=== PATIENT | female | born 1960 | race Caucasian/White ===

== ENCOUNTER 2021-07-24 14:05 | Observation (INO) | payer BC ==
[2021-07-24] MEDS ORDERED: Ondansetron PF 4 MG/2 ML Vial ONE (15:06)
[2021-07-24 15:17] LABS: #Neutrophils 9.1 10x3/uL (1.5-8.4); %Basophils 0.3 % (0.0-2.0); %Eosinophils 0.1 % (0.0-6.0); %Lymphocytes 11.1 % (18.0-47.0); %Neutrophils 79.2 % (40.0-75.0); Hemoglobin 15.2 g/dL (12.0-15.5); Mean Corpuscular HGB CONC 34.4 g/dL (32.0-36.0); Mean Corpuscular Hemoglobin 30.6 pg (27.0-33.0); Mean Corpuscular Volume 89.1 fl (81.6-98.3); Mean Platelet Volume 9.1 fl (7.4-10.4); Platelet Count 354 10x3/uL (150-450); RBC Distribution Width 12.4 % (11.5-14.5); Red Blood Cell (RBC) Count 4.96 10x6/uL (3.90-5.03); White Blood Cell (WBC) Count 11.5 10x3/uL (3.5-10.5)
[2021-07-24 15:20] LABS: ALT (SGPT) 77 U/L (8-55); AST (SGOT) 47 U/L (5-34); Albumin 4.6 g/dL (3.4-4.8); Alkaline Phosphatase 82 U/L (40-110); Anion Gap 23 mmol/L (10-20); BUN (Urea Nitrogen) 20 mg/dL (9.8-20.1); Bilirubin, Total 1.1 mg/dL (0.2-1.2); Calc. Creatinine Clearance 0 mL/min (70-130); Carbon Dioxide 22 mmol/L (23-31); Chloride 90 mmol/L (98-107); Globulin 3.4 g/dL (2.4-3.5); Glucose 79 mg/dL (80-115); Lipase 12 U/L (8-78); Potassium 3.5 mmol/L (3.5-5.1); Sodium 131 mmol/L (136-145)
[2021-07-24 16:11] LABS: Bilirubin Neg (Negative); Blood, Urine 50 (Negative); Clarity Clear (Clear); Glucose, Urine (Dipstick) Normal (Negative); Ketone, Urine 150 mg/dL (Negative); Leukocyte 25 (Negative); Nitrite Negative (Negative); Protein, Urine (Dipstick) 30 mg/dl (Neg-Trace); Specific Gravity, Urine 1.025 (1.002-1.036)
[2021-07-24] MEDS ORDERED: Promethazine HCl 25 MG/ML VIAL ONE (16:14)
[2021-07-24 16:18] LABS: RBC/HPF 0-3 HPF (0-3); Squamous Epithelial 0-3 HPF (0-3)
[2021-07-24 16:19] LABS: Bacteria/HPF Rare-Few HPF (None Seen)
[2021-07-24] MEDS ORDERED: Ondansetron PF 4 MG/2 ML Vial IVP PRN (17:06)
[2021-07-24] MEDS ORDERED: Acetaminophen 325 MG TAB PO PRN (17:08)
[2021-07-24] MEDS ORDERED: Pantoprazole 40 MG VIAL ONE ×2 (18:32)
[2021-07-24 19:12] VITALS: BMI 20.2
[2021-07-24 19:49] LABS: Lactic Acid 1.4 mmol/L (0.5-2.2)
[2021-07-24] MEDS ORDERED: Pantoprazole 40 MG VIAL IVP SCH (20:00)
[2021-07-24] MEDS ORDERED: Potassium Chloride 10 MEQ, Admixture Fee 1 EACH in Dextrose 5 % And 0.9 % NaCl 1,000 ML IV SCH (20:00)
[2021-07-24] MEDS ORDERED: cefTRIAXone\\ROCEPHIN 1 GM in Sodium Chloride 0.9% 100 ML IVPB SCH (21:00)
[2021-07-25] MEDS ORDERED: Morphine 4 MG/ML VIAL SLOW IVP PRN (00:08)
[2021-07-25 05:28] LABS: Mean Corpuscular HGB CONC 33.5 g/dL (32.0-36.0); Mean Corpuscular Hemoglobin 30.4 pg (27.0-33.0); Mean Corpuscular Volume 90.6 fl (81.6-98.3); Mean Platelet Volume 9.1 fl (7.4-10.4); Platelet Count 280 10x3/uL (150-450); RBC Distribution Width 12.4 % (11.5-14.5); Red Blood Cell (RBC) Count 3.95 10x6/uL (3.90-5.03); White Blood Cell (WBC) Count 9.8 10x3/uL (3.5-10.5)
[2021-07-25 05:36] LABS: ALT (SGPT) 44 U/L (8-55); AST (SGOT) 27 U/L (5-34); Albumin 3.4 g/dL (3.4-4.8); Alkaline Phosphatase 54 U/L (40-110); Anion Gap 13 mmol/L (10-20); BUN (Urea Nitrogen) 16 mg/dL (9.8-20.1); Bilirubin, Total 0.8 mg/dL (0.2-1.2); Calc. Creatinine Clearance 87 mL/min (70-130); Calcium 8.3 mg/dL (7.8-10.44); Carbon Dioxide 20 mmol/L (23-31); Chloride 103 mmol/L (98-107); Globulin 2.3 g/dL (2.4-3.5); Glucose 103 mg/dL (80-115); Magnesium 1.9 mg/dL (1.6-2.6); Potassium 3.4 mmol/L (3.5-5.1); Protein, Total 5.7 g/dL (5.8-8.1); Sodium 133 mmol/L (136-145)
[2021-07-25 06:04] LABS: Band 2 % (5-11); Monocytes 16 % (0-10); Reactive Lymphocytes 4 % (0-10)
[2021-07-25 06:05] LABS: Eosinophils 1 % (0-10); Lymphocytes 16 % (21-51)
[2021-07-25 06:06] LABS: Platelet Morphology Comment Appears Adequate
[2021-07-25 06:08] LABS: MDiff Complete? YES; Neutrophil 60 % (42-75); RBC Morphology Normal
[2021-07-25] MEDS ORDERED: FLU VACC QS2021-22(6MOS UP)/PF 60 MCG/0.5 ML SYRINGE IM ONE (06:15)
[2021-07-25] MEDS ORDERED: Prevnar 13-Val Conj/PF 0.5 ML SYRINGE IM ONE (06:15)
[2021-07-25] MEDS ORDERED: Enoxaparin Sodium 40 MG/0.4 ML SYRINGE SC SCH (09:00)
[2021-07-25] MEDS ORDERED: Pantoprazole 40 MG VIAL IVP SCH (09:00)
[2021-07-25 12:22] VITALS: BP 130/74; TEMP 99
== END 2021-07-25 15:32 | disposition home or self-care (01) ==
LOC: CSHERS 14:05 → INTOOBSV 18:03 → CSHTELE 18:03
PROVIDERS: ADMIT Family Medicine; ATTEND Family Medicine
DX: K56.600 Partial intestinal obstruction, unspecified as to cause (principal); N39.0 Urinary tract infection, site not specified; E87.2 Acidosis; E87.1 Hypo-osmolality and hyponatremia; E86.0 Dehydration; R74.01 Elevation of levels of liver transaminase levels; I10 Essential (primary) hypertension; G35 Multiple sclerosis; F31.9 Bipolar disorder, unspecified; K21.9 Gastro-esophageal reflux disease without esophagitis; Z79.899 Other long term (current) drug therapy; Z88.0 Allergy status to penicillin; Z88.5 Allergy status to narcotic agent
CPT/HCPCS: 74176; 80053; 81003; 81015; 82010; 83605; 83690; 83735; 84443; 85025; 93005; 94760; 96365; 96372; 96374; 96375; 96376; C9113; G0378; J0696; J1650; J2270; J2405; J2550; J3480; J3490; J7042

== ENCOUNTER 2021-07-27 11:45 | Inpatient (IN) | payer BC ==
[2021-07-27 12:41] LABS: #Neutrophils 5.7 10x3/uL (1.5-8.4); %Basophils 0.4 % (0.0-2.0); %Eosinophils 0.4 % (0.0-6.0); %Lymphocytes 24.1 % (18.0-47.0); %Monocytes 11.1 % (0.0-10.0); %Neutrophils 63.8 % (40.0-75.0); Mean Corpuscular HGB CONC 33.5 g/dL (32.0-36.0); Mean Corpuscular Hemoglobin 30.4 pg (27.0-33.0); Mean Corpuscular Volume 90.7 fl (81.6-98.3); Mean Platelet Volume 8.9 fl (7.4-10.4); Platelet Count 315 10x3/uL (150-450); RBC Distribution Width 12.4 % (11.5-14.5); Red Blood Cell (RBC) Count 4.28 10x6/uL (3.90-5.03)
[2021-07-27 12:56] LABS: ALT (SGPT) 31 U/L (8-55); AST (SGOT) 24 U/L (5-34); Albumin 4.1 g/dL (3.4-4.8); Alkaline Phosphatase 63 U/L (40-110); Anion Gap 18 mmol/L (10-20); BUN (Urea Nitrogen) 10 mg/dL (9.8-20.1); Bilirubin, Total 0.8 mg/dL (0.2-1.2); Calc. Creatinine Clearance 0 mL/min (70-130); Calcium 9.3 mg/dL (7.8-10.44); Carbon Dioxide 23 mmol/L (23-31); Chloride 100 mmol/L (98-107); Globulin 2.7 g/dL (2.4-3.5); Glucose 73 mg/dL (80-115); Lipase 45 U/L (8-78); Potassium 3.3 mmol/L (3.5-5.1); Protein, Total 6.8 g/dL (5.8-8.1); Sodium 138 mmol/L (136-145)
[2021-07-27] MEDS ORDERED: Acetaminophen 325 MG TAB PO PRN (14:14)
[2021-07-27] MEDS ORDERED: Ondansetron PF 4 MG/2 ML Vial IVP PRN (14:14)
[2021-07-27] MEDS ORDERED: Bisacodyl 10 MG SUPP PR PRN (14:14)
[2021-07-27] MEDS ORDERED: Senokot S 8.6-50 MG TAB PO PRN (14:14)
[2021-07-27] MEDS ORDERED: hydrALAZINE 20 MG/ML VIAL SLOW IVP PRN (14:17)
[2021-07-27] MEDS ORDERED: Bisacodyl 10 MG SUPP PR SCH (17:30)
[2021-07-27 17:53] VITALS: BMI 19.7
[2021-07-27] MEDS: Potassium Chloride 20 MEQ in Lactated Ringer's 1,000 ML IV SCH (19:31)
[2021-07-27] MEDS: Famotidine/PF 20 mg/2ml Vial SLOW IVP SCH (19:42)
[2021-07-28 01:01] LABS: SARS-CoV-2 NAA Rapid Test Not Detected (NotDetected)
[2021-07-28 04:58] LABS: #Basophils 0.1 10x3/uL (0.0-0.2); #Monocytes 1.1 10x3/uL (0.0-1.1); #Neutrophils 8.6 10x3/uL (1.5-8.4); %Basophils 0.5 % (0.0-2.0); %Eosinophils 0.2 % (0.0-6.0); %Lymphocytes 18.2 % (18.0-47.0); %Monocytes 9.2 % (0.0-10.0); %Neutrophils 71.6 % (40.0-75.0); Hemoglobin 13.3 g/dL (12.0-15.5); Mean Corpuscular HGB CONC 33.3 g/dL (32.0-36.0); Mean Corpuscular Hemoglobin 30.4 pg (27.0-33.0); Mean Corpuscular Volume 91.5 fl (81.6-98.3); Mean Platelet Volume 8.8 fl (7.4-10.4); Platelet Count 369 10x3/uL (150-450); RBC Distribution Width 12.5 % (11.5-14.5); Red Blood Cell (RBC) Count 4.37 10x6/uL (3.90-5.03)
[2021-07-28 05:13] LABS: Anion Gap 19 mmol/L (10-20); BUN (Urea Nitrogen) 11 mg/dL (9.8-20.1); Calc. Creatinine Clearance 74 mL/min (70-130); Calcium 9.1 mg/dL (7.8-10.44); Carbon Dioxide 22 mmol/L (23-31); Chloride 106 mmol/L (98-107); Glucose 71 mg/dL (80-115); Potassium 3.2 mmol/L (3.5-5.1); Sodium 144 mmol/L (136-145)
[2021-07-28] MEDS: Famotidine/PF 20 mg/2ml Vial SLOW IVP SCH (08:52)
[2021-07-28] MEDS ORDERED: Potassium Chloride 20 MEQ in Premix Bag 1 BAG IVPB SCH (09:00)
[2021-07-28] MEDS: Potassium Chloride 20 MEQ in Lactated Ringer's 1,000 ML IV SCH (09:41)
[2021-07-28 12:47] VITALS: BP 140/76; TEMP 98.3
== END 2021-07-28 17:00 | disposition home or self-care (01) | DRG 389 ==
LOC: CSHERS 11:45 → CSHTELE 16:55
PROVIDERS: ADMIT Family Medicine; ATTEND Family Medicine
DX: K56.600 Partial intestinal obstruction, unspecified as to cause (principal); N39.0 Urinary tract infection, site not specified; E87.2 Acidosis; E87.1 Hypo-osmolality and hyponatremia; E87.6 Hypokalemia; I10 Essential (primary) hypertension; M06.9 Rheumatoid arthritis, unspecified; Z20.822 Contact with and (suspected) exposure to COVID-19; F31.9 Bipolar disorder, unspecified; Z88.2 Allergy status to sulfonamides; Z88.5 Allergy status to narcotic agent; Z79.899 Other long term (current) drug therapy; Z90.49 Acquired absence of other specified parts of digestive tract; Z90.710 Acquired absence of both cervix and uterus; Z98.890 Other specified postprocedural states; E86.0 Dehydration; R74.01 Elevation of levels of liver transaminase levels; G35 Multiple sclerosis; K21.9 Gastro-esophageal reflux disease without esophagitis
CPT/HCPCS: 36415; 74018; 74176; 74177; 74250; 80048; 80053; 81003; 81015; 82010; 83605; 83690; 83735; 84443; 85025; 93005; 94760; 96372; 96374; 96375; 96376; C9113; G0378; J0696; J1650; J2270; J2405; J2550; J3480; J3490; J7042; J7120; S0028; U0002

== ENCOUNTER 2021-08-07 07:29 | Inpatient (IN) | payer BC ==
[2021-08-07 08:45] LABS: ALT (SGPT) 590 U/L (8-55); AST (SGOT) 66 U/L (5-34); Albumin 4.2 g/dL (3.4-4.8); Alkaline Phosphatase 79 U/L (40-110); Anion Gap 24 mmol/L (10-20); BUN (Urea Nitrogen) 14 mg/dL (9.8-20.1); Bilirubin, Total 1.1 mg/dL (0.2-1.2); Calc. Creatinine Clearance 0 mL/min (70-130); Calcium 9.3 mg/dL (7.8-10.44); Carbon Dioxide 23 mmol/L (23-31); Chloride 89 mmol/L (98-107); Globulin 3.1 g/dL (2.4-3.5); Glucose 76 mg/dL (80-115); Lipase 11 U/L (8-78); Potassium 3.5 mmol/L (3.5-5.1); Protein, Total 7.3 g/dL (5.8-8.1); Sodium 132 mmol/L (136-145)
[2021-08-07 08:48] LABS: %Basophils 0.4 % (0.0-2.0); %Eosinophils 0.1 % (0.0-6.0); %Lymphocytes 14.8 % (18.0-47.0); %Monocytes 10.4 % (0.0-10.0); Mean Corpuscular HGB CONC 33.6 g/dL (32.0-36.0); Mean Corpuscular Hemoglobin 30.6 pg (27.0-33.0); Mean Platelet Volume 8.9 fl (7.4-10.4); Platelet Count 424 10x3/uL (150-450); RBC Distribution Width 13.1 % (11.5-14.5); White Blood Cell (WBC) Count 9.4 10x3/uL (3.5-10.5)
[2021-08-07 10:15] LABS: Bilirubin Neg (Negative); Blood, Urine 25 (Negative); Clarity Clear (Clear); Glucose, Urine (Dipstick) Normal (Negative); Ketone, Urine 150 mg/dL (Negative); Leukocyte Negative (Negative); Nitrite Negative (Negative); Protein, Urine (Dipstick) 30 mg/dl (Neg-Trace); Specific Gravity, Urine 1.015 (1.002-1.036); Urobilinogen Normal mg/dL (Less than 2)
[2021-08-07 10:41] LABS: Bacteria/HPF Rare-Few HPF (None Seen); RBC/HPF 0-3 HPF (0-3); Squamous Epithelial 0-3 HPF (0-3); WBC/HPF 0-3 HPF (0-3)
[2021-08-07 10:53] LABS: SARS-CoV-2 NAA Rapid Test Not Detected (NotDetected)
[2021-08-07] MEDS ORDERED: Ondansetron PF 4 MG/2 ML Vial ONE (11:22)
[2021-08-07] MEDS ORDERED: Ondansetron ODT 4 MG TAB PO PRN (11:47)
[2021-08-07] MEDS ORDERED: Metoclopramide HCl 10 MG/2 ML VIAL IVP PRN (11:49)
[2021-08-07] MEDS ORDERED: Thiamine 100 MG TAB PO SCH (13:30)
[2021-08-07] MEDS: D5 1/2 NS w/20 mEq KCL 1,000 ML IV SCH (16:43)
[2021-08-07 17:53] VITALS: BMI 19.2
[2021-08-07] MEDS: Ondansetron PF 4 MG/2 ML Vial IVP PRN (21:30)
[2021-08-07] MEDS ORDERED: Acetaminophen 650 MG/20.3 ML UDCUP PO SCH (23:45)
[2021-08-08] MEDS: D5 1/2 NS w/20 mEq KCL 1,000 ML IV SCH ×3 (02:45→21:00)
[2021-08-08 04:26] LABS: #Basophils 0.1 10x3/uL (0.0-0.2); #Eosinphils 0.1 10x3/uL (0.0-0.5); %Basophils 0.7 % (0.0-2.0); %Lymphocytes 24.1 % (18.0-47.0); %Monocytes 14.9 % (0.0-10.0); Hemoglobin 12.5 g/dL (12.0-15.5); Mean Corpuscular HGB CONC 33.2 g/dL (32.0-36.0); Mean Corpuscular Hemoglobin 30.3 pg (27.0-33.0); Mean Corpuscular Volume 91.3 fl (81.6-98.3); Mean Platelet Volume 8.7 fl (7.4-10.4); Platelet Count 312 10x3/uL (150-450); RBC Distribution Width 13.1 % (11.5-14.5); Red Blood Cell (RBC) Count 4.12 10x6/uL (3.90-5.03); White Blood Cell (WBC) Count 6.9 10x3/uL (3.5-10.5)
[2021-08-08 05:04] LABS: ALT (SGPT) 336 U/L (8-55); AST (SGOT) 35 U/L (5-34); Albumin 3.2 g/dL (3.4-4.8); Alkaline Phosphatase 60 U/L (40-110); Anion Gap 9 mmol/L (10-20); BUN (Urea Nitrogen) 7 mg/dL (9.8-20.1); Bilirubin, Total 0.9 mg/dL (0.2-1.2); Calc. Creatinine Clearance 70 mL/min (70-130); Calcium 8.3 mg/dL (7.8-10.44); Carbon Dioxide 28 mmol/L (23-31); Chloride 100 mmol/L (98-107); Globulin 2.1 g/dL (2.4-3.5); Glucose 107 mg/dL (80-115); Potassium 3.4 mmol/L (3.5-5.1); Protein, Total 5.3 g/dL (5.8-8.1); Sodium 134 mmol/L (136-145)
[2021-08-08] MEDS: Ondansetron PF 4 MG/2 ML Vial IVP PRN ×2 (09:01→17:21)
[2021-08-08] MEDS: Pantoprazole 40 MG VIAL IVP SCH (09:01)
[2021-08-08 13:21] LABS: Hep B Surf Ag Non-Reactive S/CO (NonReactive); Hep C IgG Ab Non-Reactive (NonReactive)
[2021-08-08 13:22] LABS: Hep A IgM AB Non-Reactive (NonReactive); Hep A IgM S/CO 0.12 S/CO (0-0.79)
[2021-08-08 13:23] LABS: HBCM Index 0.14 S/CO (0-0.79); Hepatitis B Core IgM Abs Non-Reactive (NonReactive)
[2021-08-08] MEDS ORDERED: Bupivacaine PF 0.5% 30 ML VIAL ONE (14:37)
[2021-08-08] MEDS ORDERED: EPINEPHrine 1 MG/ML AMP ONE (14:37)
[2021-08-08] MEDS ORDERED: PROPOFOL 20 ML ONE (14:47)
[2021-08-08] MEDS ORDERED: Fentanyl 250 MCG/5 ML VIAL ONE (14:48)
[2021-08-08] MEDS ORDERED: Lidocaine 1% PF 5 ML VIAL ONE (14:48)
[2021-08-08] MEDS ORDERED: Rocuronium Bromide 10 MG/ML (10ML VIAL) ONE (14:48)
[2021-08-08] MEDS ORDERED: Succinylcholine 200 MG/10 ml SYRINGE FS ONE (14:57)
[2021-08-08] MEDS ORDERED: Glycopyrrolate 0.2 MG/ML 5 ML SYRINGE ONE (15:57)
[2021-08-08] MEDS ORDERED: Dexamethasone 4 mg/ml Vial ONE (16:00)
[2021-08-08] MEDS ORDERED: Ondansetron PF 4 MG/2 ML Vial ONE (16:00)
[2021-08-08] MEDS ORDERED: Fentanyl 100 MCG/2 ML VIAL ONE (16:33)
[2021-08-08] MEDS ORDERED: Acetaminophen 325 MG TAB PO PRN (17:09)
[2021-08-08] MEDS: traMADol HCl 50 MG TAB PO PRN (17:59)
[2021-08-08] MEDS: Amitriptyline HCl 25 MG TAB PO SCH (22:48)
[2021-08-09] MEDS: Pantoprazole 40 MG VIAL IVP SCH (09:15)
[2021-08-09] MEDS: D5 1/2 NS w/20 mEq KCL 1,000 ML IV SCH ×2 (09:16→19:29)
[2021-08-09] MEDS: traMADol HCl 50 MG TAB PO PRN ×2 (09:26→19:27)
[2021-08-09] MEDS: Amitriptyline HCl 25 MG TAB PO SCH (21:31)
[2021-08-10] MEDS: D5 1/2 NS w/20 mEq KCL 1,000 ML IV SCH (07:13)
[2021-08-10] MEDS: Pantoprazole 40 MG VIAL IVP SCH (08:28)
[2021-08-10 09:02] VITALS: BP 96/66; TEMP 97.6
[2021-08-10] MEDS: traMADol HCl 50 MG TAB PO PRN (09:18)
== END 2021-08-10 10:09 | disposition home or self-care (01) | DRG 336 ==
LOC: CSHERS 07:29 → INTOOBSV 11:49 → OBSVTOIN 11:49 → CSHTELE 11:49 → UNDOADMOB 11:49 → CSHTELE 16:01 → UNDOADMIN 16:01 → INTOOBSV 08-08 15:00 → OBSVTOIN 08-08 15:00 → CSHTELE 08-08 15:01
PROVIDERS: ADMIT Hospitalist; ATTEND Hospitalist
PROC: 0DN84ZZ Release Small Intestine, Percutaneous Endoscopic Approach (ICD-10-PCS; principal; 2021-08-08)
DX: K56.51 Intestinal adhesions [bands], with partial obstruction (principal); E44.0 Moderate protein-calorie malnutrition; Z68.1 Body mass index [BMI] 19.9 or less, adult; Z20.822 Contact with and (suspected) exposure to COVID-19; I10 Essential (primary) hypertension; F31.9 Bipolar disorder, unspecified; E86.0 Dehydration; G35 Multiple sclerosis; E87.6 Hypokalemia; E88.89 Other specified metabolic disorders; K57.10 Diverticulosis of small intestine without perforation or abscess without bleeding; R74.01 Elevation of levels of liver transaminase levels; Z88.2 Allergy status to sulfonamides; Z88.5 Allergy status to narcotic agent; Z79.899 Other long term (current) drug therapy; Z90.710 Acquired absence of both cervix and uterus; Z90.49 Acquired absence of other specified parts of digestive tract; Z98.890 Other specified postprocedural states
CPT/HCPCS: 36415; 74177; 76705; 80053; 80074; 81003; 81015; 82010; 83605; 83690; 85025; 94760; 96361; 96374; 96375; 96376; C9113; G0378; J0171; J1100; J2405; J2704; J2765; J3010; J3480; J3490; S0020; U0002